=== PATIENT | female | born 1970 | race African-American/Black ===

== ENCOUNTER 2022-09-02 08:28 | Day surgery (SDC) | payer OTHER ==
[2022-08-27 11:32] VITALS: BMI 40.6
[2022-09-02 10:01] VITALS: RESP 16; TEMP 98
[2022-09-02 10:04] VITALS: BP 140/82; PULSE 85
== END 2022-09-02 10:04 | disposition home or self-care (01) ==
LOC: FASU-ENDO 08:28
PROVIDERS: ATTEND Internal Medicine Gastroenterology
PROC: 0DB68ZX Excision of Stomach, Via Natural or Artificial Opening Endoscopic, Diagnostic (ICD-10-PCS; 2022-09-02)
PROC: 0DB98ZX Excision of Duodenum, Via Natural or Artificial Opening Endoscopic, Diagnostic (ICD-10-PCS; principal; 2022-09-02 09:25)
DX: R93.3 Abnormal findings on diagnostic imaging of other parts of digestive tract (principal); K29.50 Unspecified chronic gastritis without bleeding
CPT/HCPCS: 88305-TC; 88342-TC